=== PATIENT | female | born 1965 | race Caucasian/White ===

== ENCOUNTER → 2016-10-20 | Outpatient (CLI) | payer SELFPAY ==
--- NOTE | 2016-10-20 09:11 | CPEKG ---
Heart Rate: 78 RR Interval: 769 P-R Interval: 200 QRSD Interval: 84 QT Interval: 380 QTC Interval: 433 P [place]: 71 QRS [place]: 17 T Wave [place]: 24 EKG Severity - ABNORMAL ECG - EKG Impression: SINUS RHYTHM Electronically Signed By: Gina Reeder 20-Oct-2016 16:39:14
== END ==
LOC: FCP 08:53
PROVIDERS: ATTEND Otolaryngology
DX: Z01.810 Encounter for preprocedural cardiovascular examination (principal)